=== PATIENT | male | born 2000 | race Caucasian/White ===

== ENCOUNTER 2021-09-25 05:12 | Emergency (ER) | payer SELFPAY ==
[2021-09-25 05:16] VITALS: BP 126/104; PULSE 78; RESP 16; TEMP 36.4; O2SAT 99
--- NOTE | 2021-09-25 06:29 | ED.DENTAL ---
HPI - Dental/Oral General Chief complaint: Dental/Oral Stated complaint: tooth infection Time Seen by Provider: 09/25/21 06:01 History of Present Illness HPI Narrative: This is a 21-year-old male with past medical history of dental caries, who presents to the emergency department complaining of 8 out of 10 right jaw pain associated with a cavity. He states he has had pain in the area before, and has been worse for the last couple of days, exacerbated by chewing. He denies associated fevers or jaw swelling. He denies difficulty swallowing or difficulty breathing. Related Data Allergies Allergy/AdvReac Type Severity Reaction Status Date / Time No Known Allergies Allergy Verified 09/25/21 05:20 Review of Systems Review of Systems: CONSTITUTIONAL: Denies fever, chills, or sweats. EYES: Denies visual changes, redness, or discharge. ENT: Right tooth pain denies rhinorrhea, congestion, sore throat, or otalgia. CARDIOVASCULAR: Denies chest pain, palpitations, or edema. RESPIRATORY: Denies cough or dyspnea. GASTROINTESTINAL: Denies abdominal pain, nausea, vomiting, or diarrhea. GENITOURINARY: Denies dysuria or hematuria. SKIN: Denies rash or itching. MUSCULOSKELETAL: Denies back pain, joint pain, or myalgia. NEUROLOGIC: Denies headache, numbness, dizziness, or weakness. PSYCHIATRIC: Denies anxiety or depression. Exam Narrative: GENERAL: Well-appearing, well-nourished, and in no acute distress. HEAD: Normocephalic, atraumatic. EYES: PERRLA and EOMI. ENT: Caries noted at tooth #30 without active bleeding, mild erythema noted at the gum consistent with abscess. Clear, no rhinorrhea or epistaxis. Mucous membranes moist. Oropharynx without tonsillar hypertrophy exudate or other lesions. NECK: Supple. No adenopathy or masses. No carotid bruits or JVD CHEST: Clear to auscultation. No respiratory distress. No wheezes rales or rhonchi HEART: Regular rate and rhythm. No murmur heard. Normal peripheral pulses. ABDOMEN: Soft, nontender, nondistended, normal active bowel sounds. NEURO: No focal deficits. Alert and oriented x3. Course Vital Signs Vital signs: Vital Signs Temperature 97.6 F 09/25/21 05:16 Pulse Rate 78 09/25/21 05:16 Respiratory Rate 16 09/25/21 05:16 Blood Pressure 126/104 H 09/25/21 05:16 Pulse Oximetry 99 09/25/21 05:16 Oxygen Delivery Room Air 09/25/21 05:16 Temperature 97.6 F 09/25/21 05:16 Pulse Rate 72 09/25/21 06:56 Respiratory Rate 18 09/25/21 06:56 Blood Pressure 120/72 09/25/21 06:56 Pulse Oximetry 98 09/25/21 06:56 Oxygen Delivery Room Air 09/25/21 05:16 MDM - Dental/Oral MDM Narrative Medical decision making narrative: Plan: Pain control, antibiotics, refer for dental Differential Diagnosis Differential diagnosis: Likely dental caries, dental abscess and other Discharge Plan Discharge Clinical Impression: Dental abscess, Dental caries Patient Disposition: Home, Self-Care Condition: Stable Instructions: Antibiotic Form, Dental Abscess (ED) Additional Instructions: You were seen in the emergency department. He was given pain medications. Unfortunately we do not have the ability to put a temporary cap on the tooth. I recommend following up with a dentist today or tomorrow. You may take 1 g of Tylenol every 8 hours for the next 3 days with ibuprofen in addition as needed. If you develop jaw swelling, difficulty swallowing, difficulty breathing, or other emergent concerns for life, limb, or eyesight, return to the emergency department. Patient Language: Bol[place]ian Prescriptions: New amoxicillin-pot clavulanate 875-125 mg tablet 1 tablet PO Q12H Qty: 14 0RF Follow-up/Referrals: Flaco Li MD [Primary Care Provider] - Stand Alone Forms: Work/School Release IP Time of Disposition: 06:34
[2021-09-25] MEDS: KETOROLAC 30 MG/ML VIAL (*BKC) IM (06:30)
[2021-09-25 06:56] VITALS: BP 120/72; PULSE 72; RESP 18; O2SAT 98
== END 2021-09-25 06:57 | disposition home or self-care (01) ==
PROVIDERS: Emergency Provider Preventive Medicine Aerospace Medicine; PCP Family Medicine
DX: K04.7 Periapical abscess without sinus (principal); K02.9 Dental caries, unspecified
CPT/HCPCS: 96372; 99283; J1885

== ENCOUNTER 2021-10-20 05:54 | Emergency (ER) | payer OTHER, SELFPAY ==
--- NOTE | ~2021-10-20 | CT_ITS ---
EXAMINATION: CT lumbar spine wo con DATE: 10/20/2021 08:43 INDICATION: Low back pain TECHNIQUE: Computed tomography (CT) of the lumbar spine was performed without intravenous contrast. T he dose-length product (DLP) was 445.69 mGy-cm. Iterative reconstruction was used. COMPARISON: None FINDINGS: There is no fracture, dislocation, or subluxation. The vertebral body heights, alignment, a nd intervertebral disc spaces are normal. The paravertebral soft tissues are unremarkable. There is m arked distention of the urinary bladder. IMPRESSION: 1. No acute osseous abnormality. 2. Marked distention of the urinary bladder. Reviewed, dictated and finalized at location A.
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
--- NOTE | ~2021-10-20 | CT_ITS ---
EXAMINATION: CT brain wo con INDICATION: Head injury COMPARISON: None TECHNIQUE: Standard unenhanced head CT. The dose-length product (DLP) was 605.33 mGy-cm. The mA was a djusted according to patient size. Iterative reconstruction technique was employed. FINDINGS: There is no intracranial hemorrhage, acute infarction, or abnormal mass lesion. The ventric les are normal. There is no abnormal mass effect or midline shift. The russell-white matter differentiat ion is normal. The basal cisterns are patent. The orbits are normal. The paranasal sinuses, mastoids and calvarium are normal. IMPRESSION: 1. No acute intracranial abnormality. Reviewed, dictated and finalized at location A.
[2021-10-20 05:56] VITALS: BP 121/66; PULSE 76; RESP 12; TEMP 36.3; O2SAT 100
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
[2021-10-20] MEDS: SODIUM CHLORIDE 0.9% IV 1,000 ML 999 ML IV CONT (06:15)
[2021-10-20 06:21] LABS: Estimated CRCL calculation 80 ml/min; Estimated Glomerular Filt Rate > 60
[2021-10-20 06:25] LABS: Basophils Absolute Auto 0.1 K/mm3 (0.0-0.1); Basophils Percent Auto 0.8 % (0.2-1.2); Eosinophils Absolute Auto 0.1 K/mm3 (0-0.3); Eosinophils Percent Auto 1.7 % (0-4.4); Hematocrit 45.5 % (42.0-52.0); Hemoglobin 15.7 g/dL (14.0-18.0); Immature Granulocyte Absolute 0.02 K/mm3 (0.00-0.031); Immature Granulocyte Percent A 0.3 % (0-0.5); Lymphocytes Absolute Auto 2.69 K/mm3 (0.9-3.2); Lymphocytes Percent Auto 37.5 % (18.3-44.2); Mean Corpuscular HGB Conc 34.5 g/dl (32-36); Mean Corpuscular Hemoglobin 30.5 pg (26-34); Mean Corpuscular Volume 88.5 fl (80-100); Mean Platelet Volume 8.5 fl (7.4-10.4); Monocytes Absolute Auto 0.2 K/mm3 (0.1-0.6); Monocytes Percent Auto 3.2 % (2.6-8.5); Neutrophils Absolute Auto 4.1 K/mm3 (1.3-6.7); Neutrophils Percent Auto 56.5 % (45.5-73.1); Platelet Count Result 290 k/mm3 (150-375); Red Blood Count 5.14 M/mm3 (4.6-6.20); Red Cell Distribution Width 12.1 % (11.5-14.5); White Blood Count 7.2 K/mm3 (4.5-10.0)
[2021-10-20 06:34] LABS: Ethanol 213 mg/dL (<10)
--- NOTE | 2021-10-20 07:15 | PC.NURSE ---
Report given to KRISHAN Fernandes
[2021-10-20 07:18] LABS: Alanine Aminotransferase 23 U/L (6-50); Alkaline Phosphatase 92 U/L (38-126); Anion Gap 18 mmol/L (8-16); Aspartate Amino Transferase 27 U/L (17-59); Bilirubin,Total 1.2 mg/dL (0.2-1.3); Blood Urea Nitrogen 7 mg/dL (9-20); Calcium 9.6 mg/dL (8.4-10.2); Carbon Dioxide 18 mmol/L (22-30); Chloride 107 mmol/L (98-107); Estimated CRCL calculation 98 ml/min; Estimated Glomerular Filt Rate > 60; Glucose 88 mg/dL (65-110); Potassium 3.4 mmol/L (3.4-5.0); Sodium 143 mmol/L (137-145)
[2021-10-20 07:22] VITALS: BP 114/76; PULSE 84; RESP 16; O2SAT 100
[2021-10-20 09:35] VITALS: BP 110/68; PULSE 62; RESP 18; O2SAT 99
[2021-10-20 10:18] VITALS: BP 102/80; PULSE 71; RESP 17; O2SAT 99
--- NOTE | 2021-10-20 10:20 | PC.NURSE ---
bladder scan at 1020 showed greater than 750 ml in bladder after patient voided
[2021-10-20 10:24] LABS: Appearance Urine Clear (Clear); Bilirubin Urine Negative (Negative); Blood Urine Negative (Negative); Color Urine Yellow (Yellow); Glucose Urine UA Negative (Negative); Ketones Urine Negative (Negative); Leukocyte Esterase Ur Trace LEU/UL (Negative); Nitrate Urine Negative (Negative); Protein Urine Negative (Negative); Specific Grav Ur <= 1.005 (1.001-1.035); Urobilinogen Urine 0.2 mg/dL (<2.0)
[2021-10-20 10:29] LABS: Mucus Urine Rare /lpf; RBC Urine 0-2 /hpf (0-2); Squamous Epithelial Cell Urine Rare /hpf (Few); WBC Urine 0-3 /hpf
[2021-10-20 10:55] LABS: Add Urine Microscopic? YES
[2021-10-20 12:10] VITALS: BP 120/69; PULSE 72; RESP 18; O2SAT 98
[2021-10-20 13:51] VITALS: BP 128/81; PULSE 86; RESP 20; O2SAT 100
== END 2021-10-20 13:40 | disposition home or self-care (01) ==
PROVIDERS: Emergency Medicine; Emergency Provider Emergency Medicine; PCP Family Medicine
DX: S16.1XXA Strain of muscle, fascia and tendon at neck level, initial encounter (principal); F10.129 Alcohol abuse with intoxication, unspecified; Y90.7 Blood alcohol level of 200-239 mg/100 ml; V48.5XXA Car driver injured in noncollision transport accident in traffic accident, initial encounter
CPT/HCPCS: 70450; 71260; 72125; 72131; 74177; 80053; 80307; 81001; 85025; 96360; 99284; J7030; Q9967